=== PATIENT | female | born 1955 | race Caucasian/White ===

== ENCOUNTER 2017-06-17 01:51 | Inpatient (IN) | payer OTHER ==
[~2017-06-17] VITALS: Ht 167.6 cm; Wt 65.8 kg
[~2017-06-17 01:51] MED LIST: IMITREX100 M1 PO; SYNTHROID125 MCG PO; WELLBUTRIN XL300 M2 PO; ZOLOFT50 M1 PO
--- NOTE | 2017-06-17 09:49 | Admission Core Measures ---
Acute Coronary Syndrome (CM) ACS Core Measures Acute Coronary Syndrome Diagnosis No Congestive Heart Failure (NEW) CHF Core Measures Congestive Heart Failure Diagnosis No Cerebrovascular Accident (NEW) CVA Core Measures CVA/TIA Diagnosis No Venous Thromboembolism VTE Core Fani (View Protocol) VTE Risk Factors Surgery No Mechanical VTE Prophylaxis d/t N/A MechProphylax Ordered No VTE Pharm Prophylaxis d/t NA PharmProphylax ordered Problem List As ranked by this Provider includes Assessment & Plan 1. Unilateral primary osteoarthritis, left hip HOME MEDS Home Med List Bupropion HCl (Wellbutrin XL) 300 MG TAB.ER.24H 1 TAB PO DAILY DEPRESSION ( Reported) Levothyroxine Sodium (Synthroid) 125 MCG TABLET 1 TAB PO DAILY HORMONE REPLACEMENT (Reported) Sertraline HCl (Zoloft) 100 MG TABLET 1 TAB PO DAILY DEPRESSION (Reported) Sumatriptan Succinate (Imitrex) 100 MG TABLET 1 TAB PO DAILY PRN MIGRAINES ( Reported)
[2017-06-17] MEDS ORDERED: MIRALAX17 G1 PO (09:51)
[2017-06-17] MEDS ORDERED: MS CONTIN15 M3 PO (09:51)
[2017-06-17] MEDS ORDERED: ASPIRIN EC325 M2 PO (09:51)
[2017-06-17] MEDS ORDERED: DILAUDID2 M1 PO (09:51)
[2017-06-17] MEDS ORDERED: PRILOSEC OTC20 M1 PO (09:51)
[2017-06-17] MEDS ORDERED: COLACE100 M1 PO (09:51)
--- NOTE | 2017-06-17 09:58 | Patient Discharge Instructions ---
Discharge Instructions General Discharge Information You were seen/treated for: Left hip pain related to unilateral primary osteoarthritis You had these procedures: Left total hip replacement, anterior approach Watch for these problems: Increasing pain despite the use of pain medication Increasing redness, warmth or swelling Drainage of any type from incision Inability to bear weight on operative leg Persistent nausea and vomiting Fever greater than 101.5 degrees Do not soak the wound: Yes No bath, but you may shower: Yes Other wound care: Please keep wound clean and dry. No ointments or lotions of any type on or near incision at any time. No exceptions. Your dressing will be changed by your nurse on the second day after your surgery. Daily dry dressing changes are recommended each day thereafter. Do not soak your wound in a bath at any time until otherwise indicated by your surgeon. You may shower, please dry wound immediately after shower with a clean towel. Special Instructions: Aspirin: You are taking this medication to help prevent blood clot formation. Please take with food to protect your stomach lining. Please take as directed. Constipation: Pain medication can cause constipation. Dr. Avelar has recommended that you take Colace and miralax each day. You may discontinue this medication if you develop loose stool or diarrhea. If you wish to continue this medication, it is available over the counter. If you are unable to move your bowels after several days, if you are unable to pass gas and are developing bloating, nausea, or vomiting as a result, please contact your doctor. Diet Continue normal diet: Yes Recommended Diet: Regular Activity Full Activity/No Limits: No Activity Self Limited: Yes Pounds, do NOT lift more than: 10 Acute Coronary Syndrome Inclusion Criteria At DC or during hospital stay patient has or had the following: ACS DIAGNOSIS No Discharge Core Measures Meds if any: Prescribed or Continued at Discharge Meds if any: NOT Prescribed or Continued at Discharge Congestive Heart Failure Inclusion Criteria At DC or during hospital stay patient has or had the following: CHF DIAGNOSIS No Discharge Core Measures Meds if any: Prescribed or Continued at Discharge Meds if any: NOT Prescribed or Continued at Discharge Cerebrovascular accident Inclusion Criteria At DC or during hospital stay patient has or had the following: CVA/TIA Diagnosis No Discharge Core Measures Meds if any: Prescribed or Continued at Discharge Meds if any: NOT Prescribed or Continued at Discharge Venous thromboembolism Inclusion Criteria VTE Diagnosis No VTE Type NONE VTE Confirmed by (Test) NONE Discharge Core Measures - Per Current guidelines, there needs to be overlap - treatment for the first 5 days of Warfarin therapy. - If discharged on Warfarin prior to 5 days of - overlap therapy, the patient will need to be - assessed for post discharge needs including - *Post discharge parental anticoagulation - *Warfarin and/or parental anticoagulation education - *Follow up date to check INR post discharge At least 5 days overlap therapy as Inpatient No Meds if any: Prescribed or Continued at Discharge Note: Overlap Therapy is Warfarin and Anticoagulant Meds if any: NOT Prescribed or Continued at Discharge
--- NOTE | 2017-06-17 10:00 | Surgical Discharge Summary ---
Visit Information Visit Dates Admission Date: 06/17/17 History of Present Illness Chief Complaint: Left hip pain related to unilateral primary osteoarthritis Surgical History Pertinent Surgical History: non-contributory Review of Systems: See H&P Hospital Course Course Attending Physician: Dean Avelar MD Primary Care Physician: Chuck Finney MD Hospital Course: Patient was admitted to the hospital for an elective total joint replacement. The procedure was tolerated well and patient was transferred to a general surgical floor. Diet was advanced and tolerated, and the patient voided spontaneously. The patient was evaluated and treated by physical therapy. At the time of hospital discharge, the vital signs were stable, neurovascular status was intact, and pain was controlled with the use of oral pain medications. Allergies: Coded Allergies: No Known Allergies (06/13/17) Disposition Summary Disposition Principal Diagnosis: Left hip unilateral primary osteoarthritis Additional Diagnosis: None Discharge Disposition: home health services Discharge Instructions General Discharge Information Code Status: Full Code Patient's Diet: Regular, advance as tolerated Patient's Activity: WBAT Follow-Up Instructions/Appts: Follow up with Dr. Avelar in 6 weeks from date of surgery. Please call his office to arrange and/or confirm this appointment. Medications at Discharge Discharge Medications: Continue taking these medications: Sertraline HCl (Zoloft) 100 MG TABLET 1 Tablet ORAL DAILY Bupropion HCl (Wellbutrin XL) 300 MG TAB.ER.24H 1 Tablet ORAL DAILY Levothyroxine Sodium (Synthroid) 125 MCG TABLET 1 Tablet ORAL DAILY Sumatriptan Succinate (Imitrex) 100 MG TABLET 1 Tablet ORAL DAILY as needed for MIGRAINES Start taking the following new medications: Aspirin (Ecotrin*) 325 MG TABLET.DR 1 Tablet ORAL TWICE DAILY Qty = 60 No Refills Docusate Sodium (Colace) 100 MG CAPSULE 1 Capsule ORAL TWICE DAILY Qty = 14 No Refills Instructions: DISCONTINUE USE IF YOU DEVELOP LOOSE STOOL OR DIARRHEA Polyethylene Glycol 3350 (Miralax) 17 GRAM POWD.PACK 1 Packet ORAL DAILY Qty = 7 No Refills Instructions: dissolve in water, DISCONTINUE USE IF YOU DEVELOP LOOSE STOOL OR DIARRHEA Morphine Sulfate (Ms Contin) 15 MG TABLET.ER 1 Tablet ORAL TWICE DAILY Qty = 3 No Refills Hydromorphone HCl (Dilaudid) 2 MG TABLET 1-2 Tablet ORAL EVERY 4-6 HOURS NEEDED as needed for PAIN Qty = 36 No Refills Omeprazole Magnesium (Prilosec Otc) 20 MG TABLET.DR 1 Tablet ORAL DAILY Qty = 30 No Refills
--- NOTE | 2017-06-17 10:37 | RADIOLOGY REPORT ---
EXAMINATION: XR HIP, LEFT CLINICAL INFORMATION: Status post left total hip arthroplasty COMPARISON: None TECHNIQUE: Two views of the left hip. FINDINGS: Patient is status post left total hip arthroplasty. Hardware components appear well-seated and in anatomic alignment. No acute periprosthetic fracture is seen. Overlying soft tissue gas is noted. IMPRESSION: Status post left total hip arthroplasty with expected postoperative changes.
[2017-06-17 11:13] VITALS: BP 132/80
[2017-06-17] MEDS ORDERED: FIORINAL 50-321 EACH PO (11:55)
--- NOTE | 2017-06-17 12:02 | PN- Orthopedic ---
Subjective Subjective: Post op check OOB in chair Just ambulated with PT - did well except has not attempted stairs yet Denies nausea Feels a migraine starting - she suffers from migraines and takes fiorinal/ imitrex for relief - chronic, weekly symptoms for years - no other complaints Objective Vital Signs and I&Os Vital Signs Date Time Temp Pulse Resp B/P B/P Pulse O2 O2 Flow FiO2 Mean Ox Delivery Rate 06/17 1113 96.1 62 18 132/80 97 Room Air Room Air Intake & Output 06/17 1600 06/17 0800 06/17 0000 06/16 1600 06/16 0800 06/16 0000 Intake Total Output Total Balance Patient 145 lb Weight Weight Reported by Patient Measurement Method Physical Exam: vss, afebrile General: alert and oriented times three Chest: clear anteriorly bilaterally, RRR Abd: soft, good bs Ext: no edema, normosensate, good 5/5 ARPAN BLE Wd: dressed, dry, ice pack in place Current Medications: Current Medications Sig/Abad Start time Last Medication Dose Route Stop Time Status Admin Acetaminophen 1,000 MG Q6 06/17 1200 AC 06/17 IV 06/18 0601 1137 Acetaminophen 0 .STK-MED ONE 06/17 0708 DC PO Acetaminophen 975 MG ONCE 06/17 0000 DC PO 06/17 2359 Acetaminophen/ 2 TAB ONCE ONE 06/17 1200 UNVr Butalbital/Caffeine PO 06/17 1201 Aspirin 325 MG BID 06/17 1000 AC 06/17 PO 1136 Bupropion HCl 300 MG DAILY 06/18 1000 AC PO Bupropion HCl 300 MG DAILY 06/17 1000 DC PO Cefazolin Sodium 2 GM IQ8 06/17 1600 AC N/A 1 UNIT IV 06/18 0029 Cefazolin Sodium 2,000 MG ONCE 06/17 0000 DC IV 06/17 2359 Dextrose/Sodium 1,000 ML .[id number] 06/17 1100 AC 06/17 Chloride IV 1141 Docusate Sodium 100 MG BID 06/17 1000 AC 06/17 PO 1137 Hydromorphone HCl 2 MG Q4P PRN 06/17 1100 AC PO Hydromorphone HCl 4 MG Q4P PRN 06/17 1100 AC PO Ketorolac 15 MG Q8P PRN 06/17 1100 AC Tromethamine IV 06/20 1058 Levothyroxine Sodium 0.125 MG DAILY AC 06/18 0700 DC PO Levothyroxine Sodium 0.125 MG DAILY AC 06/18 0700 AC PO Morphine Sulfate 2 MG Q2P PRN 06/17 1100 AC IV Omeprazole 40 MG DAILY AC 06/18 0700 AC PO Ondansetron HCl 4 MG Q6P PRN 06/17 1100 AC IV Oxycodone HCl 0 .STK-MED ONE 06/17 0708 DC PO Oxycodone HCl 10 MG ONCE 06/17 0000 DC PO 06/17 2359 Polyethylene Glycol 17 GM DAILY 06/17 1000 AC PO Promethazine HCl 12.5 MG Q6P PRN 06/17 1100 AC IV 06/24 0944 Sertraline HCl 100 MG DAILY 06/18 1000 AC PO Sertraline HCl 100 MG DAILY 06/17 1000 DC PO Assessment/Plan Assessment/Plan 61yo female s/p L THR anteriorl approach PT - wbat follow up PT recommendations for discharge fioricet now for impending migraine - no fiorinal on formulary Instructed pt to decrease asa intake if she requires fiorinal at home as it contains aspirin - recommend 650mg daily as prescribed post op. 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 asa 325mg po bid for dvt ppx Core Measures Venous Thromboembolism VTE Risk Factors Surgery No Mechanical VTE Prophylaxis d/t N/A MechProphylax Ordered No VTE Pharm Prophylaxis d/t NA PharmProphylax ordered
[2017-06-17 12:56] VITALS: BP 100/62
[2017-06-17 15:00] VITALS: BP 116/70
--- NOTE | 2017-06-17 16:35 | Operative Report ---
Operative/Inv Procedure Report Surgery Date: 06/17/17 Name of Procedure: Left total hip replacement Pre-Operative Diagnosis: Primary left hip DJD Post-Operative Diagnosis: Same Estimated Blood Loss: 300 Surgeon/Yard Loader Operator: Rosio BROWNING,Dean Hilton Anesthesia: block Operative/Procedure Note Note: Description of Procedure: The patient was taken to the operating room and positively identified. After induction of spinal anesthesia and administration of appropriate pre-operative antibiotics, the patient was positioned supine on the operating room table and all bony prominences were well padded. After performing a surgical timeout, the left lower extremity was prepped and draped in the usual sterile fashion. A direct anterior approach was made to the left hip. The incision was carried sharply through superficial soft tissues to the level of the fascia. Meticulous hemostasis was maintained with Bovie electocautery. The fascia over the tensor fascia bridgette muscle was opened sharply and the interval between the TFL and the sartorius was entered bluntly taking care to stay lateral to the lateral femoral cutaneous nerve. Retractors were placed around the femoral neck and the pericapsular fat was identified. The ascending branches of the lateral femoral circumflex vessels were identified and carefully coagulated. The pericapsular fat and anterior capsule were then resected. A napkin ring osteotomy was performed and the femoral head was removed without difficulty. Attention was then turned to the acetabulum. After appropriate placement of retractors, the acetabulum was exposed. Soft tissue was cleaned from the acetabular margin and notch. Overhanging osteophytes were removed and the teardrop was exposed. The acetabulum was then sequentially reamed to accept a 50 mm [place] Tritanium hemispherical solid shell. This was impacted into place in the appropriate position and fitted with a 32 mm Trident X3 zero degree polyethylene insert. Attention was then turned to the femur. After performing the appropriate ligament releases, the proximal femur was exposed. It was then sequentially broached to accept a size 5 Dex Accolade 2 stem. This was trialed for leg length and stability. The trial component was removed and the final component was impacted into place. The trunnion was carefully cleaned and fit with a 32 mm, +4 Biolox delta ceramic femoral head. The hip was reduced and put through a full range of motion and found to be stable. The articular space was then irrigated with sterile saline. The periarticular soft tissues were infilitrated with Marcaine. The fascial layer was closed with interrupted #1 vicryl suture and the skin was re-approximated with interrupted 2 -0 vicryl. The skin was closed with a running 3-0 V-Lock suture. Steri-strips and a sterile dressing were applied. The patient was awakened and taken to the recovery room in satisfactory condition.
== END 2017-06-17 16:12 | disposition home health service (06) | DRG 470 ==
LOC: SDA 01:51 → ENRESERV 10:08 → ENTRNSPT 10:25 → EDTRNSPTSTS 10:31 → EDTRNSPT 10:31 → 2NA 10:42 → CMPTRNSPT 11:07 → ENPENDDIS 14:23 → ENTRNSPT 15:57 → 2NA 16:12 → CMPTRNSPT 16:14
PROC: 0SRB0JA Replacement of Left Hip Joint with Synthetic Substitute, Uncemented, Open Approach (ICD-10-PCS; principal; 2017-06-17)
DX: M16.12 Unilateral primary osteoarthritis, left hip (principal); E03.9 Hypothyroidism, unspecified; F32.9 Major depressive disorder, single episode, unspecified; Z86.19 Personal history of other infectious and parasitic diseases
CPT/HCPCS: 2NAP; 73502-LT; 97116-GO; 97161-GP; 97530-GO; J0131; J0690; J0735; J2550; J3490; J7042